=== PATIENT | male | born 1975 | race Hispanic/Latino ===

== ENCOUNTER → 2021-07-06 | Outpatient (CLI) | payer BC | LOC: RAD 15:49 | PROVIDERS: ATTEND Family Medicine | DX: M79.671 Pain in right foot (principal) ==

== ENCOUNTER → 2024-08-31 | Day surgery (SDC) | payer MEDICARE, OTHER ==
[~2024-08-31] MED LIST: B12 INJECTION; LACTATED RINGER'S 1,000 ML ONE; LIDOCAINE HCL 2% LOCAL INJ 5 ML SDV VIAL INJ ONE; LORATADINE10 MG PO; MAGNESIUM OXID400 MG PO; OSTEO BI-FLEX1 EAC2 PO; PROPOFOL IV EMULSION 10 MG/ML 50 ML VIAL IV ONE; VITAMIN D PO
[2024-08-31 08:27] VITALS: TEMP 97.1
[2024-08-31 08:55] VITALS: BP 127/79; PULSE 74; RESP 16; O2SAT 97
== END | disposition home or self-care (01) ==
LOC: ENDO 07:29
PROVIDERS: ATTEND Internal Medicine Gastroenterology
DX: K59.00 Constipation, unspecified (principal); R10.32 Left lower quadrant pain; Z87.19 Personal history of other diseases of the digestive system; M54.2 Cervicalgia; Z01.810 Encounter for preprocedural cardiovascular examination; Z79.899 Other long term (current) drug therapy
CPT/HCPCS: 45378; 93005; J2003; J2704; J7121; 45330